=== PATIENT | female | born 1945 | race Caucasian/White ===

== ENCOUNTER 2017-12-25 09:34 | Emergency (ER) | payer MEDICARE ==
[~2017-12-25] VITALS: Ht 157.5 cm; Wt 61.5 kg
[2017-12-25 09:36] VITALS: BP 182/77; PULSE 107; RESP 15; TEMP 98.1; O2SAT 99
[2017-12-25] MEDS ORDERED: LOSA50TA PO (09:46)
[2017-12-25] MEDS ORDERED: ATOR20TA15 PO (09:46)
[2017-12-25 09:53] VITALS: BP 146/68; PULSE 98; RESP 16; O2SAT 100
[2017-12-25 10:35] VITALS: RESP 16; O2SAT 100
--- NOTE | 2017-12-25 10:41 | PD ---
HPI Chief Complaint: Pain: Acute or Chronic Time Seen by Provider: 10:21 Travel History International Travel<30 days: No Contact w/Intl Traveler<30days: No Traveled to known affect area: No History of Present Illness HPI 72-year-old female complains of chest pain. Patient states that she had sharp pain localized to left upper chest last week. Patient states the pain lasted several hours and resolved completely. Patient states that she had chest pain last night. Patient describes chest pain is substernal pressure without radiation. Patient denies palpitation nausea diaphoresis. Patient states that the chest pain lasted about an hour and resolved completely. Patient denies any chest pain now. Patient denies any history of CAD. Patient has history hypertension, hyperlipidemia. Patient denies history diabetes. Patient is nonsmoker. Patient states that she had normal stress test done about 12 years ago. PFSH Past Medical History Cardiovascular Problems: Yes High Cholesterol: Yes Diminished Hearing: No Tetanus Vaccination: > 5 Years Influenza Vaccination: Yes ?: Not Menopausal: Yes : 3 Para: 3 Past Surgical History Surgical History: No Previous Surgery Social History Alcohol Use: Yes (RARE) Tobacco Use: No Substance Use: No Allergies-Medications (Allergen,Severity, Reaction): Coded Allergies: No Known Allergies (Unverified , 12/25/17) Reported Meds & Prescriptions Reported Meds & Active Scripts Active Reported Atorvastatin (Atorvastatin Calcium) 20 Mg Tab 20 Mg PO HS Losartan (Losartan Potassium) 50 Mg Tab 50 Mg PO DAILY Review of Systems General / Constitutional: No: Fever Eyes: No: Visual changes HENT: No: Headaches Cardiovascular: Positive: Chest Pain or Discomfort Respiratory: No: Shortness of Breath Gastrointestinal: No: Abdominal Pain Genitourinary: No: Dysuria Musculoskeletal: No: Pain Skin: No Rash Neurologic: No: Weakness Psychiatric: No: Depression Endocrine: No: Polydipsia Hematologic/Lymphatic: No: Easy Bruising Physical Exam Narrative GENERAL: Well-nourished, well-developed patient. SKIN: Focused skin assessment warm/dry. HEAD: Normocephalic. EYES: No scleral icterus. No injection or drainage. NECK: Supple, trachea midline. No JVD or lymphadenopathy. CARDIOVASCULAR: Regular rate and rhythm without murmurs, gallops, or rubs. RESPIRATORY: Breath sounds equal bilaterally. No accessory muscle use. GASTROINTESTINAL: Abdomen soft, non-tender, nondistended. MUSCULOSKELETAL: No cyanosis, or edema. BACK: Nontender without obvious deformity. No CVA tenderness. Neurologic exam normal. Data Data Last Documented VS Vital Signs Date Time Temp Pulse Resp B/P (MAP) Pulse Ox O2 Delivery O2 Flow Rate FiO2 12/25/17 14:00 97.8 98 15 136/63 (87) 100 Room Air Orders Orders Electrocardiogram (12/25/17 10:29) Complete Blood Count With Diff (12/25/17 10:29) Comprehensive Metabolic Panel (12/25/17 10:29) Creatine Kinase (Cpk) (12/25/17 10:29) Troponin I (12/25/17 10:29) Prothrombin Time / Inr (Pt) (12/25/17 10:29) Act Partial Throm Time (Ptt) (12/25/17 10:29) Chest, Single Ap (12/25/17 10:29) Iv Access Insert/Monitor (12/25/17 10:29) Ecg Monitoring (12/25/17 10:29) Oximetry (12/25/17 10:29) Labs Laboratory Tests Test 12/25/17 10:30 White Blood Count 6.5 TH/MM3 Red Blood Count 5.14 MIL/MM3 Hemoglobin 15.6 GM/DL Hematocrit 46.2 % Mean Corpuscular Volume 89.9 FL Mean Corpuscular Hemoglobin 30.4 PG Mean Corpuscular Hemoglobin Concent 33.9 % Red Cell Distribution Width 13.4 % Platelet Count 272 TH/MM3 Mean Platelet Volume 8.3 FL Neutrophils (%) (Auto) 69.4 % Lymphocytes (%) (Auto) 20.7 % Monocytes (%) (Auto) 7.2 % Eosinophils (%) (Auto) 2.0 % Basophils (%) (Auto) 0.7 % Neutrophils # (Auto) 4.5 TH/MM3 Lymphocytes # (Auto) 1.4 TH/MM3 Monocytes # (Auto) 0.5 TH/MM3 Eosinophils # (Auto) 0.1 TH/MM3 Basophils # (Auto) 0.0 TH/MM3 CBC Comment DIFF FINAL Differential Comment Prothrombin Time 10.5 SEC Prothromb Time International Ratio 1.0 RATIO Activated Partial Thromboplast Time 25.0 SEC Blood Urea Nitrogen 11 MG/DL Creatinine 0.83 MG/DL Random Glucose 118 MG/DL Total Protein 7.6 GM/DL Albumin 3.7 GM/DL Calcium Level 8.8 MG/DL Alkaline Phosphatase 77 U/L Aspartate Amino Transf (AST/SGOT) 17 U/L Alanine Aminotransferase (ALT/SGPT) 21 U/L Total Bilirubin 0.4 MG/DL Sodium Level 140 MEQ/L Potassium Level 4.0 MEQ/L Chloride Level 105 MEQ/L Carbon Dioxide Level 28.7 MEQ/L Anion Gap 6 MEQ/L Estimat Glomerular Filtration Rate 68 ML/MIN Total Creatine Kinase 86 U/L Troponin I LESS THAN 0.02 NG/ML MDM Medical Decision Making Medical Screen Exam Complete: Yes Emergency Medical Condition: Yes Interpretation(s) 10:41 AM. EKG shows sinus rhythm nonspecific ST-T wave change. 1353 PM. Last Impressions Chest X-Ray 12/25/17 1029 Signed Impressions: Service Date/Time: December 10:36 - CONCLUSION: 1. Probable hiatal hernia. 2. Otherwise, no acute cardiopulmonary disease. Swapnil Multani MD 1353 PM. CBC within normal limit. CMP within normal limit. Cardiac enzymes are normal. Differential Diagnosis Differential diagnosis including musculoskeletal, angina, OK, PE, pneumothorax. Narrative Course 72-year-old female with chest pain. Patient was advised to be admitted the chest pain center. Patient refuses admission. Patient will go home and see her physician at home for stress test. Diagnosis Primary Impression: Chest pain Qualified Codes: R07.9 - Chest pain, unspecified Patient Instructions: General Instructions Additional Instructions: Aspirin daily. 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 Return immediately if increased chest pain shortness of breath. Med/Other Pt SpecificInfo: No Change to Meds Disposition: 01 DISCHARGE HOME Condition: Stable Sawyer Reid MD Dec 25, 2017 10:41
--- NOTE | 2017-12-25 10:46 | RADRPT ---
EXAM DATE/TIME: 12/25/2017 10:36 [facility] COMPARISON: No previous studies available for comparison. INDICATIONS : Chest tightness MEDICAL HISTORY : None. SURGICAL HISTORY : None. ENCOUNTER: Initial ACUITY: 2 days PAIN SCORE: 0/10 LOCATION: Bilateral chest FINDINGS: A single view of the chest demonstrates the lungs to be symmetrically aerated without evidence of mas s, infiltrate or effusion. The cardiomediastinal contours are unremarkable. Retrocardiac opacity co nsistent with mild to moderate hernia. Osseous structures are intact. CONCLUSION: 1. Probable hiatal hernia. 2. Otherwise, no acute cardiopulmonary disease. Swapnil Multani MD on December 25, 2017 at 10:41 Board Certified Radiologist. This report was verified electronically.
[2017-12-25 10:53] LABS: AUTOMATED NEUTROPHIL # 4.5 TH/MM3 (1.8-7.7); BASOPHIL % 0.7 % (0.0-2.0); EOSINOPHIL # 0.1 TH/MM3 (0-0.4); HEMATOCRIT 46.2 % (35.0-46.0); HEMOGLOBIN 15.6 GM/DL (11.6-15.3); LYMPH % 20.7 % (9.0-44.0); LYMPHOCYTE # 1.4 TH/MM3 (1.0-4.8); MEAN CELL VOLUME 89.9 FL (80.0-100.0); MEAN CORPUSCULAR HEMOGLOBIN 30.4 PG (27.0-34.0); MEAN CORPUSCULAR HGB CONC 33.9 % (32.0-36.0); MEAN PLATELET VOLUME 8.3 FL (7.0-11.0); MONO % 7.2 % (0.0-8.0); MONOCYTE # 0.5 TH/MM3 (0-0.9); NEUT % 69.4 % (16.0-70.0); PLATELET COUNT 272 TH/MM3 (150-450); RED BLOOD COUNT 5.14 MIL/MM3 (4.00-5.30); RED CELL DISTRIBUTION WIDTH 13.4 % (11.6-17.2); WHITE BLOOD COUNT 6.5 TH/MM3 (4.0-11.0)
[2017-12-25 11:07] LABS: ALBUMIN 3.7 GM/DL (3.4-5.0); ALT (GPT) 21 U/L (10-53); AST (GOT) 17 U/L (15-37); BICARBONATE 28.7 MEQ/L (21.0-32.0); BLOOD UREA NITROGEN 11 MG/DL (7-18); CALCIUM 8.8 MG/DL (8.5-10.1); CHLORIDE 105 MEQ/L (98-107); CREATININE 0.83 MG/DL (0.50-1.00); GLOMERULAR FILTRATION RATE 68 ML/MIN (>89); GLUCOSE,RANDOM 118 MG/DL (74-106); SODIUM (NA) 140 MEQ/L (136-145)
[2017-12-25 11:08] LABS: PROTHROMBIN TIME - PATIENT 10.5 SEC (9.8-11.6)
[2017-12-25 11:10] LABS: ALKALINE PHOSPHATASE 77 U/L (45-117); TOTAL BILIRUBIN ADULT 0.4 MG/DL (0.2-1.0); TOTAL PROTEIN 7.6 GM/DL (6.4-8.2); TROPONIN I LESS THAN 0.02 NG/ML (0.02-0.05)
[2017-12-25 12:00] VITALS: BP 143/63; PULSE 89; RESP 16; TEMP 97.9; O2SAT 100
[2017-12-25 14:00] VITALS: BP 136/63; PULSE 98; RESP 15; TEMP 97.8; O2SAT 100
[2017-12-25 15:45] VITALS: BP 132/76; TEMP 97.8
[2017-12-25] MEDS ORDERED: ASPIRIN 325 MG TAB PO ONE (15:45)
--- NOTE | 2017-12-26 19:03 | EKG ---
Date Performed: 12/25/2017 Time Performed: 09:47:53 PTAGE: 72 years EKG: Sinus rhythm POSSIBLE LEFT ATRIAL ENLARGEMENT BORDERLINE ECG NO PREVIOUS TRACING DOCTOR: Addy Mathias Interpretating Date/Time 12/26/2017 19:02:35
== END 2017-12-25 15:45 | disposition home or self-care (01) ==
LOC: NEPC 09:34
DX: R07.9 Chest pain, unspecified (principal); E78.00 Pure hypercholesterolemia, unspecified; I10 Essential (primary) hypertension; E78.5 Hyperlipidemia, unspecified; Z79.899 Other long term (current) drug therapy
CPT/HCPCS: 71045; 80053; 82550; 84484; 85025; 85610; 85730; 93005